=== PATIENT | male | born 1980 | race African-American/Black ===

== ENCOUNTER 2018-02-27 02:30 | Emergency (ER) | payer OTHER ==
[2018-02-27] MEDS ORDERED: KETOROLAC 30 MG/ML INJ ONE (03:02)
[2018-02-27] MEDS ORDERED: HYDRALAZINE HCL 20 MG/ML VIAL ONE (03:02)
[2018-02-27 03:17] LABS: Protime INR 0.97
[2018-02-27 03:34] LABS: Absolute Lymphocytes (CBC) 1.7 K/uL (0.7-4.9); Absolute Monocytes 0.5 K/uL (0.1-1.3); Basophils % 0.5 % (0-1.3); Eosinophils % 1.6 % (0-4.4); Hematocrit 48.6 % (39.6-49.0); Lymphocytes % 26.8 % (15.3-44.8); MCH 30.7 pg (27.0-35.0); MCV 88.8 fL (80-100); Monocytes % 7.3 % (3.3-12.3); RBC Red Blood Cell Count 5.47 M/uL (4.33-5.43)
[2018-02-27 03:40] LABS: ALT/SGPT 26 U/L (12-78); AST/SGOT 14 U/L (15-37); Albumin 4.1 g/dL (3.4-5.0); Alkaline Phosphatase 89 U/L (45-117); BUN Blood Urea Nitrogen 14 mg/dL (7-18); Bicarbonate 27 mmol/L (21-32); Bilirubin Direct 0.2 mg/dL (0-0.2); Bilirubin Total 0.8 mg/dL (0.2-1.0); Glucose Level 123 mg/dL (74-106); Magnesium 2.2 mg/dL (1.8-2.4); Potassium 3.8 mmol/L (3.5-5.1); Protein, Total 7.5 g/dL (6.4-8.2); Sodium Level 141 mmol/L (136-145); Troponin (Emerg Dept Use Only) < 0.02 ng/mL (0.0-0.045)
[2018-02-27 03:50] LABS: NT PRO-BNP < 5 pg/mL (<125)
--- NOTE | 2018-02-27 04:45 | EDPHYS ---
Physician Documentation [facility] Name: Flaco Marmolejo Age: 37 yrs Sex: Male : 1980 Arrival Date: 02/27/2018 Time: 02:32 Bed 13 Private MD: ED Physician Carlos Phillips HPI: 02/27 04:56 This 37 yrs old Black Male presents to ER via Ambulatory with complaints of Chest Pain. tw4 04:56 The patient or guardian reports chest pain that is located primarily in the anterior tw4 chest wall, left. The pain does not radiate. Associated signs and symptoms: The patient has no apparent associated signs or symptoms. The chest pain is described as dull. Duration: The patient or guardian reports a single episode. Modifying factors: The symptoms are alleviated by remaining still, the symptoms are aggravated by movement. Severity of pain: At its worst the pain was moderate in the emergency department the pain is unchanged. The patient has not experienced similar symptoms in the past. Historical: - Allergies: 02:43 No Known Allergies; jd3 - Home Meds: 02:43 None [Active]; jd3 - PMHx: 02:43 Hypertension; jd3 - PSHx: 02:43 None; jd3 - Immunization history:: Adult Immunizations up to date, Flu vaccine is not up to date. - Social history:: Smoking status: Patient/guardian denies using tobacco. - Ebola Screening: : Patient negative for fever greater than or equal to 101.5 degrees Fahrenheit, and additional compatible Ebola Virus Disease symptoms. ROS: 04:45 Constitutional: Negative for fever, chills, and weight loss, Eyes: Negative for injury, tw4 pain, redness, and discharge, Respiratory: Negative for shortness of breath, cough, wheezing, and pleuritic chest pain, Abdomen/GI: Negative for abdominal pain, nausea, vomiting, diarrhea, and constipation, Back: Negative for injury and pain, MS/Extremity: Negative for injury and deformity, Skin: Negative for injury, rash, and discoloration, Neuro: Negative for headache, weakness, numbness, tingling, and seizure. 04:45 Cardiovascular: Positive for chest pain, with movement, of the anterior aspect of left upper chest and left breast. Exam: 04:45 Constitutional: This is a well developed, well nourished patient who is awake, alert, tw4 and in no acute distress. Head/Face: Normocephalic, atraumatic. Cardiovascular: Regular rate and rhythm with a normal S1 and S2. No gallops, murmurs, or rubs. Normal PMI, no JVD. No pulse deficits. Respiratory: Lungs have equal breath sounds bilaterally, clear to auscultation and percussion. No rales, rhonchi or wheezes noted. No increased work of breathing, no retractions or nasal flaring. Abdomen/GI: Soft, non-tender, with normal bowel sounds. No distension or tympany. No guarding or rebound. No evidence of tenderness throughout. Skin: Warm, dry with normal turgor. Normal color with no rashes, no lesions, and no evidence of cellulitis. MS/ Extremity: Pulses equal, no cyanosis. Neurovascular intact. Full, normal range of motion. 04:45 Chest/axilla: Inspection: normal, Palpation: tenderness, that is moderate, of the anterior aspect of left upper chest and left breast, that totally reproduces the patient's complaints. 04:45 ECG was reviewed by the Attending Physician. Vital Signs: 02:44 BP 170 / 116; Pulse 87; Resp 15 S; Temp 99.4(O); Pulse Ox 99% on R/A; Weight 83.91 kg jd3 (R); Height 6 ft. 1 in. (185.42 cm) (R); Pain 8/10; 03:19 BP 138 / 91; Pulse 90; Resp 15 S; Pulse Ox 98% on R/A; jd3 04:14 BP 145 / 95; Pulse 85; Resp 14 S; Pulse Ox 98% on R/A; Pain 0/10; jd3 02:44 Body Mass Index 24.41 (83.91 kg, 185.42 cm) jd3 MDM: 02:33 Patient medically screened. tw4 04:56 HEART Score: History: Slightly Suspicious (0), ECG: Normal (0), Age: < or = 45 years tw4 (0), Risk Factors: No Risk Factors Known (0), Troponin: < or = 1 x Normal Limit (0), Total Score =. Data reviewed: vital signs, nurses notes. Counseling: I had a detailed discussion with the patient and/or guardian regarding: the historical points, exam findings, and any diagnostic results supporting the discharge/admit diagnosis, lab results, radiology results. Medication response: Toradol relieved patient's pain. The symptoms have resolved. Response to treatment: and as a result, I will discharge patient, give anti-hypertensive medication, norvasc, administer pain medication, ibuprofen. Special discussion: Based on the patient's history, exam, and Dx evaluation, there is no indication for emergent intervention or inpatient Tx. It is understood by the patient/guardian that if the Sx's persist or worsen they need to return immediately for re-evaluation. I discussed with the patient/guardian in detail that at this point there is no indication for admission to the hospital. It is understood, however, that if the symptoms persist or worsen the patient needs to return immediately for re-evaluation. 02/27 02:39 Order name: Basic Metabolic Panel tw4 02/27 02:39 Order name: CBC with Diff tw4 02/27 02:39 Order name: LFT's tw4 02/27 02:39 Order name: Magnesium tw4 02/27 02:39 Order name: NT PRO-BNP tw4 02/27 02:39 Order name: PT-INR tw4 02/27 02:39 Order name: Troponin (emerg Dept Use Only) tw4 02/27 02:39 Order name: XRAY Chest (1 view) tw4 02/27 02:39 Order name: EKG; Complete Time: 02:39 tw4 02/27 02:39 Order name: Cardiac monitoring; Complete Time: 02:43 tw4 02/27 02:39 Order name: EKG - Nurse/Tech; Complete Time: 02:43 tw4 02/27 02:39 Order name: IV Saline Lock; Complete Time: 02:47 tw4 02/27 02:39 Order name: Labs collected and sent; Complete Time: 02:47 tw4 02/27 02:39 Order name: O2 Per Protocol; Complete Time: :47 4 02/27 02:39 Order name: O2 Sat Monitoring; Complete Time: 02:47 tw4 EC:45 Rate is 82 beats/min. Rhythm is regular. QRS [place] is Normal. CT interval is normal. QRS tw4 interval is normal. QT interval is normal. No Q waves. T waves are Normal. No ST changes noted. Clinical impression: Normal ECG. Interpreted by me. Reviewed by me. Administered Medications: 03:00 Drug: TORadol 30 mg Route: IVP; Site: right antecubital; jd3 04:00 Follow up: Response: No adverse reaction; Marked relief of symptoms jd3 03:00 Drug: hydrALAZINE 20 mg Route: IV; Rate: bolus; Site: right antecubital; jd3 04:00 Follow up: Response: No adverse reaction; Marked relief of symptoms; IV Status: jd3 Completed infusion Disposition: 02/27/18 04:44 Discharged to Home. Impression: Costochondritis, Hypertensive urgency. - Condition is Stable. - Discharge Instructions: Hypertension, Chest Wall Pain, [id number]. - Prescriptions for Ibuprofen 800 mg Oral Tablet - take 1 tablet by ORAL route every 12 hours As needed take with food; 20 tablet. Norvasc 5 mg Oral Tablet - take 1 tablet by ORAL route once daily; 20 tablet. - Medication Reconciliation Form, Thank You Letter, Antibiotic Education, Prescription Opioid Use form. - Follow up: Private Physician; When: Upon discharge from the Emergency Department; Reason: Recheck today's complaints, Continuance of care. Follow up: Osito Baca MD; When: Upon discharge from the Emergency Department; Reason: If symptoms return, Recheck today's complaints, Continuance of care. - Problem is new. - Symptoms have improved. Signatures: Dispatcher [employer] Av Villaseñor RN RN jCarlos Machado MD MD tw4 Corrections: (The following items were deleted from the chart) 04:55 04:44 02/27/2018 04:44 Discharged to Home. Impression: Costochondritis; Hypertensive jd3 urgency. Condition is Stable. Forms are Medication Reconciliation Form, Thank You Letter, Antibiotic Education, Prescription Opioid Use. Follow up: Private Physician; When: Upon discharge from the Emergency Department; Reason: Recheck today's complaints, Continuance of care. Follow up: Osito Baca; When: Upon discharge from the Emergency Department; Reason: If symptoms return, Recheck today's complaints, Continuance of care. Problem is new. Symptoms have improved. tw4
--- NOTE | 2018-02-27 04:45 | ER ---
Nurse's Notes [facility] Name: Flaco Marmolejo Age: 37 yrs Sex: Male : 1980 Arrival Date: 02/27/2018 Time: 02:32 Bed 13 Private MD: Diagnosis: Costochondritis;Hypertensive urgency Presentation: 02/27 02:39 Presenting complaint: Patient states: "I am having chest pain that woke me up this jd3 morning. I went to [facility] and they said my heart looked ok and they didn't take my insurance so I came over here, but the pain is still constant and it won't go away.". Transition of care: patient was not received from another setting of care. Onset of symptoms was February 27, 2018. Risk Assessment: Do you want to hurt yourself or someone else? Patient reports no desire to harm self or others. Initial Sepsis Screen: Does the patient meet any 2 criteria? No. Patient's initial sepsis screen is negative. Does the patient have a suspected source of infection? No. Patient's initial sepsis screen is negative. Care prior to arrival: None. 02:39 Method Of Arrival: Ambulatory jd3 02:39 Acuity: MIRNA 3 jd3 Historical: - Allergies: 02:43 No Known Allergies; jd3 - Home Meds: 02:43 None [Active]; jd3 - PMHx: 02:43 Hypertension; jd3 - PSHx: 02:43 None; jd3 - Immunization history:: Adult Immunizations up to date, Flu vaccine is not up to date. - Social history:: Smoking status: Patient/guardian denies using tobacco. - Ebola Screening: : Patient negative for fever greater than or equal to 101.5 degrees Fahrenheit, and additional compatible Ebola Virus Disease symptoms. Screenin:47 Abuse screen: Denies threats or abuse. Nutritional screening: No deficits noted. jd3 Tuberculosis screening: No symptoms or risk factors identified. Fall Risk Ambulatory Aid- None/Bed Rest/Nurse Assist (0 pts). Gait- Normal/Bed Rest/Wheelchair (0 pts) Mental Status- Oriented to own ability (0 pts). Total Watts Fall Scale indicates No Risk (0-24 pts). Assessment: 02:45 General: Appears in no apparent distress. uncomfortable, Behavior is calm, cooperative, jd3 appropriate for age. Pain: Complains of pain in chest Pain does not radiate. Pain currently is 8 out of 10 on a pain scale. Quality of pain is described as sharp, Pain began suddenly. Neuro: Level of Consciousness is awake, alert, obeys commands, Oriented to person, place, time, situation, Appropriate for age. Cardiovascular: Reports chest pain, Heart tones S1 S2 present Capillary refill < 3 seconds Patient's skin is warm and dry. Rhythm is regular Chest pain quality is sharp. Respiratory: Airway is patent Respiratory effort is even, unlabored, Respiratory pattern is regular, symmetrical, Breath sounds are clear bilaterally. Denies shortness of breath. GI: Abdomen is flat, non-distended, Patient currently denies diarrhea, nausea, vomiting. : No signs and/or symptoms were reported regarding the genitourinary system. EENT: No signs and/or symptoms were reported regarding the EENT system. Derm: Skin is intact, Skin is dry, Skin is normal, Skin temperature is warm. Musculoskeletal: Circulation, motion, and sensation intact. Range of motion: intact in all extremities. 03:19 Reassessment: Patient appears in no apparent distress at this time. Patient and/or jd3 family updated on plan of care and expected duration. Pain level reassessed. Patient is alert, oriented x 3, equal unlabored respirations, skin warm/dry/pink. 04:14 Reassessment: Patient appears in no apparent distress at this time. Patient and/or jd3 family updated on plan of care and expected duration. Pain level reassessed. Patient is alert, oriented x 3, equal unlabored respirations, skin warm/dry/pink. Patient states feeling better. 04:53 Reassessment: Patient appears in no apparent distress at this time. Patient and/or jd3 family updated on plan of care and expected duration. Pain level reassessed. Patient is alert, oriented x 3, equal unlabored respirations, skin warm/dry/pink. reported understanding of discharge instructions. even and steady gait upon discharge. Patient states feeling better. Vital Signs: 02:44 BP 170 / 116; Pulse 87; Resp 15 S; Temp 99.4(O); Pulse Ox 99% on R/A; Weight 83.91 kg jd3 (R); Height 6 ft. 1 in. (185.42 cm) (R); Pain 8/10; 03:19 BP 138 / 91; Pulse 90; Resp 15 S; Pulse Ox 98% on R/A; jd3 04:14 BP 145 / 95; Pulse 85; Resp 14 S; Pulse Ox 98% on R/A; Pain 0/10; jd3 02:44 Body Mass Index 24.41 (83.91 kg, 185.42 cm) jd3 ED Course: 02:32 Patient arrived in ED. ds1 02:32 Carlos Phillips MD is Attending Physician. tw4 02:39 Av Burden RN is Primary Nurse. jd3 02:42 Triage completed. jd3 02:45 Arm band placed on. EKG completed in triage. Results shown to MD. jd3 02:45 Inserted saline lock: 20 gauge in right forearm, using aseptic technique. Blood rr5 collected. 02:47 Patient has correct armband on for positive identification. Bed in low position. Call j light in reach. Side rails up X 1. Adult w/ patient. bus driver/monitor on. Pulse ox on. NIBP on. 02:47 Patient maintains SpO2 saturation greater than 95% on room air. jd3 02:51 X-ray completed. Portable x-ray completed in exam room. Patient tolerated procedure kw well. 02:52 XRAY Chest (1 view) In Process Unspecified. EDMS 04:42 Osito Baca MD is Referral Physician. tw4 04:54 No provider procedures requiring assistance completed. IV discontinued, intact, jd3 bleeding controlled, No redness/swelling at site. Pressure dressing applied. Administered Medications: 03:00 Drug: TORadol 30 mg Route: IVP; Site: right antecubital; jd3 04:00 Follow up: Response: No adverse reaction; Marked relief of symptoms jd3 03:00 Drug: hydrALAZINE 20 mg Route: IV; Rate: bolus; Site: right antecubital; jd3 04:00 Follow up: Response: No adverse reaction; Marked relief of symptoms; IV Status: jd3 Completed infusion Outcome: 04:44 Discharge ordered by . tw4 04:54 Discharged to home ambulatory, with family. jd3 04:54 Condition: stable 04:54 Discharge instructions given to patient, family, Instructed on discharge instructions, follow up and referral plans. medication usage, Demonstrated understanding of instructions, follow-up care, medications, Prescriptions given X 2. 04:55 Patient left the ED. jd3 Signatures: Dispatcher [employer] EDMO WaldenMadeleine liao ds1 Leonarda Kumar Jonathon, RN RN jd3 Carlos Phillips MD MD tw4 Jose Raul López RN RN [id number]
--- NOTE | 2018-02-27 07:11 | EKG ---
Test Date: 2018-02-27 Test Time: 02:37:21 [employer]: ARNOL MEASUREMENT RESULTS: Intervals: Rate: 82 ND: 160 QRSD: 82 QT: 346 QTc: 404 [place]: P: 50 ND: 160 QRS: 40 T: 61 INTERPRETIVE STATEMENTS: Normal sinus rhythm Normal ECG Compared to ECG 11/07/1999 15:32:00 T-wave abnormality no longer present Electronically Signed On 02-27-18 07:10:51 [employer]TERATION TAILOR by Pacheco Nunez
--- NOTE | 2018-02-27 08:17 | RAD REPORT ---
EXAM DESCRIPTION: RAD - Chest Single View - 02/27/2018 2:52 am CLINICAL HISTORY: CHEST PAIN Chest pain. COMPARISON: No comparisons FINDINGS: Portable technique limits examination quality. The lungs are grossly clear. The heart is normal in size. No displaced fractures. IMPRESSION: No acute intrathoracic process suspected.
== END 2018-02-27 04:55 | disposition home or self-care (01) ==
LOC: ER 02:30
DX: I16.0 Hypertensive urgency (principal); M94.0 Chondrocostal junction syndrome [Tietze]; I10 Essential (primary) hypertension
CPT/HCPCS: 36415; 71045; 80048; 80076; 83735; 83880; 84484; 85025; 85610; 93005; 96365; 96375; 99285; J0360